=== PATIENT | female | born 1975 | race Caucasian/White ===

== ENCOUNTER → 2017-03-04 18:43 | Outpatient (CLI) | payer MEDICARE ==
[2009-10-08 07:06] VITALS: BMI 28.5
== END | disposition home or self-care (01) ==
LOC: D.MAMMO 16:00
DX: Z12.31 Encounter for screening mammogram for malignant neoplasm of breast (principal)

== ENCOUNTER → 2017-03-31 14:05 | Outpatient (CLI) | payer MEDICARE ==
[2009-10-08 07:06] VITALS: BMI 28.5
== END | disposition home or self-care (01) ==
LOC: D.MAMMO 13:15
DX: Z12.31 Encounter for screening mammogram for malignant neoplasm of breast (principal)

== ENCOUNTER → 2017-05-03 14:00 | Outpatient (CLI) | payer MEDICARE ==
[2009-10-08 07:06] VITALS: BMI 28.5
== END | disposition home or self-care (01) ==
LOC: D.MAMMO 04-23 09:00
DX: N60.01 Solitary cyst of right breast (principal)

== ENCOUNTER → 2017-11-30 14:18 | Outpatient (CLI) | payer MEDICARE ==
[2009-10-08 07:06] VITALS: BMI 28.5
== END | disposition home or self-care (01) ==
LOC: D.MRI 14:18
DX: M54.31 Sciatica, right side (principal)

== ENCOUNTER → 2017-12-17 19:00 | Outpatient (CLI) | payer MEDICARE ==
[2009-10-08 07:06] VITALS: BMI 28.5
== END | disposition home or self-care (01) ==
LOC: D.MAMMO 10:30
DX: R92.0 Mammographic microcalcification found on diagnostic imaging of breast (principal)

== ENCOUNTER 2019-01-18 15:00 | Outpatient (CLI) | payer MEDICARE ==
[2009-10-08 07:06] VITALS: BMI 28.5
== END 2019-01-18 15:30 | disposition home or self-care (01) ==
LOC: D.MAMMO 15:00
PROVIDERS: ATTEND Family Medicine Adult Medicine
DX: R92.0 Mammographic microcalcification found on diagnostic imaging of breast (principal)